=== PATIENT | female | born 1960 | race Caucasian/White ===

== ENCOUNTER → 2017-02-26 | Outpatient (CLI) | payer BC | END | disposition home or self-care (01) | LOC: GMAM 11:01 | PROVIDERS: ATTEND Family Medicine | DX: E04.2 Nontoxic multinodular goiter (principal) ==

== ENCOUNTER 2017-05-15 23:12 | Emergency (ER) | payer BC ==
--- NOTE | 2017-05-16 00:36 | CT ---
EXAM: CT head without contrast. INDICATION: Syncope. TECHNIQUE: Contiguous axial CT images of the brain. Intravenous contrast: Absent. DLP 773 mGy-cm. This exam was performed according to our departmental dose-optimization program, which includes automated exposure control, adjustment of the mA and/or kV according to patient size and/or use of iterative reconstruction technique. COMPARISON: None. FINDINGS: Subcutaneous: Unremarkable. No acute intracranial hemorrhage. No midline shift. No mass effect. Ventricles: No hydrocephalus. Munson-white differentiation preserved. Paranasal sinuses/mastoid air cells: A mucus retention cyst is in the left maxillary sinus Bones/orbits: Visualized portions are unremarkable. IMPRESSION: 1. No CT evidence of acute intracranial hemorrhage. Electronically signed by: Mike Chowdhury MD 05/16/2017 12:36 AM CDT Workstation: [id number]
--- NOTE | 2017-05-16 00:40 | RAD ---
EXAM DESCRIPTION: Chest,2 Views CLINICAL HISTORY: 57 years Female syncope COMPARISON: None. FINDINGS: The cardiomediastinal silhouette appears unremarkable. No consolidating infiltrates or pleural effusions. No pneumothorax. IMPRESSION: No acute abnormality is identified. Electronically signed by: Eliana Valverde 05/16/2017 12:40 AM CDT
[2017-05-16] MEDS ORDERED: SODIUM CHLORIDE 0.9% 1000ML 1,000 ML IVS ONE (01:08)
[2017-05-16] MEDS ORDERED: ASPIRIN TABLET 325 MG TAB PO ONE (01:41)
--- NOTE | 2017-05-16 02:40 | CT ---
EXAM: CT chest angiogram with contrast. INDICATION: Chest pain. TECHNIQUE: Contiguous axial CT images of the chest. Intravenous contrast: Present. Protocol: Pulmonary embolus (PE) protocol angiogram. Reformats: MIPs and MPRs created and utilized. DLP 522 mGy-cm. This exam was performed according to our departmental dose-optimization program, which includes automated exposure control, adjustment of the mA and/or kV according to patient size and/or use of iterative reconstruction technique. Note: LV=left ventricle. RV=right ventricle. COMPARISON: None. FINDINGS: Upper abdomen: Partially imaged. Cholecystectomy Thoracic aorta: Unremarkable. Heart: No right atrial thrombus. RV/LV ratio: Within normal limits. Pulmonary arteries: Pulmonary embolus: No large central pulmonary embolism is detected. Mediastinum: No pathologic sized middle mediastinal lymphadenopathy. Tracheobronchial tree: Unremarkable. Lungs: Lobar consolidation: Negative. Pleural effusion: Negative. Pneumothorax: Negative. Other: Negative. Bones: Unremarkable. IMPRESSION: 1. No CT evidence of acute PE. Electronically signed by: Mike Chowdhury MD 05/16/2017 2:39 AM CDT Workstation: [employer]
[2017-05-16] MEDS ORDERED: HEPARIN SODIUM (PORCINE) 5,000 U/ML VIAL IV ONE (02:48)
[2017-05-16 03:44] VITALS: O2SAT 96
[2017-05-16] MEDS ORDERED: PROMETHAZINE HCL INJ 25 MG in SODIUM CHLORIDE 0.9% 50ML 50 ML IVPB ONE (03:57)
[2017-05-16] MEDS ORDERED: HYDROcodone 5MG/APAP 325MG 1 EA TAB PO ONE (03:57)
[2017-05-16] MEDS ORDERED: PROMETHAZINE HCL INJ 25 MG/ML VIAL ONE (04:04)
[2017-05-16] MEDS ORDERED: SODIUM CHLORIDE 0.9% 50ML 50 ML ONE (04:05)
--- NOTE | 2017-05-16 05:41 | ED.PDOC ---
History of Present Illness - General Chief Complaint: General Stated Complaint: N/V PASSED OUT Time Seen by Provider: 05/15/17 23:15 Source: patient, family Exam Limitations: no limitations - History of Present Illness Initial Comments: the patient is a 57-year-old female presenting after 2 episodes of syncope with the last also having an episode of vomiting. The patient had a mild headache during the day. She had taken hydrocodone for the headache and the headache was already going away. The patient was getting up apparently to let the dog out from a seated position and got a few steps andpassed out briefly. She got up to go to the sink and then passed out again and vomited when she awoke. She felt weak at the time. She had some palpitations. No chest pain. No loss of continence. The patient had been off of methadone for2 and half weeks at that time. No previous significant syncopal episodes. She had not missed any of her medications otherwise. No headache at the time. No focal neurological deficits at the time. Timing/Duration: momentarily Severity: moderate Improving Factors: nothing Worsening Factors: nothing Associated Symptoms: malaise, nausea/vomiting, syncope Allergies/Adverse Reactions: Allergies Levofloxacin [From Levaquin] Adverse Reaction (Verified 05/15/17 23:35) Review of Systems - Review of Systems Constitutional: States: malaise, weakness - generalized EENTM: States: no symptoms reported Respiratory: States: no symptoms reported Cardiology: States: palpitations - briefly Gastrointestinal/Abdominal: States: vomiting Genitourinary: States: no symptoms reported Musculoskeletal: States: no symptoms reported - none new Skin: States: no symptoms reported Neurological: States: anxiety, other - yncope Endocrine: States: no symptoms reported All other Systems: No Change from Baseline Past Medical History (General) - Patient Medical History Hx Thyroid Disease: Yes Hx Diabetes: Yes Surgical History: cholecystectomy - Vaccination History Hx Tetanus, Diphtheria Vaccination: Yes Hx Influenza Vaccination: Yes Hx Pneumococcal Vaccination: No Immunizations Up to Date: Yes - Social History Hx Alcohol Use: No Hx Substance Use: No - Female History Patient is a Female of Child Bearing Age (10 -59 yrs old): No Family Medical History - Family History Mother Family History: Unknown Physical Exam - Physical Exam General Appearance: Alert, Comfortable, No apparent distress, Other - the patient's color is good. She was able to ambulate without difficulty. Speech is fluent. No focal neurological deficits. Well nourished. Well groomed. Well hydrated. Eye Exam: bilateral normal Ears, Nose, Throat: hearing grossly normal, normal ENT inspection, normal pharynx Neck: non-tender, full range of motion, supple Respiratory: chest non-tender, lungs clear, normal breath sounds, no respiratory distress, no accessory muscle use Cardiovascular/Chest: normal peripheral pulses, no edema, tachycardia - mildly tachycardic but regular rhythm Peripheral Pulses: radial,right: 2+, radial,left: 2+, dorsalis pedis,right: 2+, dorsalis pedis,left: 2+, posterior tibialis,right: 2+, posterior tibialis,left: 2+ Gastrointestinal/Abdominal: normal bowel sounds, non tender, soft Rectal Exam: deferred Back Exam: normal inspection, no CVA tenderness, no vertebral tenderness Extremity: normal range of motion, non-tender, normal inspection, no pedal edema , normal capillary refill 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 The patient is mildly tilt positive by pulse. She has received a liter of IV fluids. Source of syncope at this time is not for certain. Telemetry monitoring here has shown only sinus tachycardia no evidence of other non-perfusing arrhythmia. If any episodes recur then she needs to discuss with her doctor obtaining a Holter monitor and carotid Dopplers. She did have an elevated d-dimer but a negative CT angiogram of the chest. It is possible that she may have had a pulmonary embolus that had moved on to the periphery of her pulmonary circulation and thus was missed by the CT scan. I would recommend that she be set up as an outpatient for bilateral lower extremity Dopplers for completion of the workup for safety sake with her primary care doctor. For now she should take an aspirin daily. It is possible that gastritis may have caused a vasovagal response and the syncope. Her diabetes medications are fairly notorious for intestinal upset. She should follow-up with her primary care doctor before the weekend. she did have a slight elevation of her troponin upon initial evaluation but this disappeared with a repeat check. I believe this was an error. The patient has done well since her arrival here. She wishes to go home at this time. ER warnings were given for any worsening. - Results/Orders Results/Orders: Laboratory Tests 05/15/17 05/15/17 05/15/17 23:35 23:55 23:55 WBC 8.1 RBC 5.14 Hgb 14.8 Hct 44.2 MCV 85.9 MCH 28.7 MCHC 33.4 RDW 12.9 Plt Count 168 MPV 9.5 Absolute Neuts (auto) 6.90 H Absolute Lymphs (auto) 0.60 L Absolute Monos (auto) 0.50 Absolute Eos (auto) 0.10 Absolute Basos (auto) 0.00 Neutrophils % 84.4 H Lymphocytes % 7.7 L Monocytes % 6.2 Eosinophils % 1.4 Basophils % 0.3 PT INR PTT (SP) D-Dimer, Quantitative Sodium 136 Potassium 4.0 Chloride 102 Carbon Dioxide 25 Anion Gap 13.0 BUN 26 H Creatinine 0.91 BUN/Creatinine Ratio 28.6 H POC Glucose Random Glucose 270 H Serum Osmolality 286.2 Calcium 9.0 Magnesium 2.1 Total Bilirubin 1.4 H AST 73 H ALT 60 Alkaline Phosphatase 54 Creatine Kinase 58 CK-MB (CK-2) 0.9 CK-MB (CK-2) % Not Reportable Troponin I 0.60 H* B-Natriuretic Peptide 5.3 Serum Total Protein 6.7 Albumin 4.0 Globulin 2.7 Albumin/Globulin Ratio 1.5 TSH 1.43 Urine Color Urine Appearance Urine pH Ur Specific [place] Urine Protein Urine Glucose (UA) Urine Ketones Urine Blood Urine Nitrite Urine Bilirubin Urine Urobilinogen Ur Leukocyte Esterase Urine RBC Urine WBC Ur Epithelial Cells Urine Bacteria Urine HCG, Qual Negative 05/15/17 05/15/17 05/15/17 23:55 23:55 23:56 WBC RBC Hgb Hct MCV MCH MCHC RDW Plt Count MPV Absolute Neuts (auto) Absolute Lymphs (auto) Absolute Monos (auto) Absolute Eos (auto) Absolute Basos (auto) Neutrophils % Lymphocytes % Monocytes % Eosinophils % Basophils % PT 10.5 INR 0.930 PTT (SP) 22.0 L D-Dimer, Quantitative 864 H* Sodium Potassium Chloride Carbon Dioxide Anion Gap BUN Creatinine BUN/Creatinine Ratio POC Glucose 230 H Random Glucose Serum Osmolality Calcium Magnesium Total Bilirubin AST ALT Alkaline Phosphatase Creatine Kinase CK-MB (CK-2) CK-MB (CK-2) % Troponin I B-Natriuretic Peptide Serum Total Protein Albumin Globulin Albumin/Globulin Ratio TSH Urine Color Yellow Urine Appearance Clear Urine pH 5.0 Ur Specific [place] 1.020 Urine Protein Negative Urine Glucose (UA) 500 H Urine Ketones 15 H Urine Blood Negative Urine Nitrite Negative Urine Bilirubin Negative Urine Urobilinogen 0.2 Ur Leukocyte Esterase Negative Urine RBC 0 Urine WBC 1-3 Ur Epithelial Cells 0-1 Urine Bacteria 2+ H Urine HCG, Qual 05/16/17 03:00 WBC RBC Hgb Hct MCV MCH MCHC RDW Plt Count MPV Absolute Neuts (auto) Absolute Lymphs (auto) Absolute Monos (auto) Absolute Eos (auto) Absolute Basos (auto) Neutrophils % Lymphocytes % Monocytes % Eosinophils % Basophils % PT INR PTT (SP) D-Dimer, Quantitative Sodium Potassium Chloride Carbon Dioxide Anion Gap BUN Creatinine BUN/Creatinine Ratio POC Glucose Random Glucose Serum Osmolality Calcium Magnesium Total Bilirubin AST ALT Alkaline Phosphatase Creatine Kinase 60 CK-MB (CK-2) 0.9 CK-MB (CK-2) % Not Reportable Troponin I < 0.02 B-Natriuretic Peptide Serum Total Protein Albumin Globulin Albumin/Globulin Ratio TSH Urine Color Urine Appearance Urine pH Ur Specific [place] Urine Protein Urine Glucose (UA) Urine Ketones Urine Blood Urine Nitrite Urine Bilirubin Urine Urobilinogen Ur Leukocyte Esterase Urine RBC Urine WBC Ur Epithelial Cells Urine Bacteria Urine HCG, Qual head CT shows no acute changes. cT angiogram of the chest with PE protocol shows no evidence of a pulmonary embolus Initial and repeat EKG shows mild sinus tachycardia Normal QT interval. No acute ST segment changes concerning for ischemia on either chest x-ray appears benign - EKG/XRAY/CT CT Ordered: Yes CT Interpretation Call Back: Yes Departure - Departure Clinical Impression: Syncope Qualifiers: Syncope type: unspecified Qualified Code(s): R55 - Syncope and collapse Disposition: Discharge to Home or Self Care Condition: Fair Departure Forms: ED Discharge - Pt. Copy, Patient Portal Self Enrollment Instructions: DI for Syncope in Adults (Fainting) Diet: diabetic diet Activity: increase activity as tolerated Referrals: Jose Ely MD [Primary Care Provider] - 1-2 Days Additional Instructions: the patient is a 57-year-old female presenting after 2 syncopal episodes in rapid succession. The patient is mildly tilt positive by pulse. She has received a liter of IV fluids. Source of syncope at this time is not for certain. Telemetry monitoring here has shown only sinus tachycardia no evidence of other non-perfusing arrhythmia. If any episodes recur then she needs to discuss with her doctor obtaining a Holter monitor and carotid Dopplers. She did have an elevated d-dimer but a negative CT angiogram of the chest. It is possible that she may have had a pulmonary embolus that had moved on to the periphery of her pulmonary circulation and thus was missed by the CT scan. I would recommend that she be set up as an outpatient for bilateral lower extremity Dopplers for completion of the workup for safety sake with her primary care doctor. For now she should take an aspirin daily. It is possible that gastritis may have caused a vasovagal response and the syncope. Her diabetes medications are fairly notorious for intestinal upset. She should follow-up with her primary care doctor before the weekend. she did have a slight elevation of her troponin upon initial evaluation but this disappeared with a repeat check. I believe this was an error. The patient has done well since her arrival here. She wishes to go home at this time. ER warnings were given for any worsening.
[2017-05-16 06:13] VITALS: BP 106/63; TEMP 97.4
== END 2017-05-16 06:13 | disposition home or self-care (01) ==
LOC: ER 23:12
DX: R55 Syncope and collapse (principal); R00.0 Tachycardia, unspecified; R11.2 Nausea with vomiting, unspecified; Z88.3 Allergy status to other anti-infective agents; E11.9 Type 2 diabetes mellitus without complications; E07.9 Disorder of thyroid, unspecified
CPT/HCPCS: 36415; 36416; 70450; 71020; 71275; 80053; 81001; 81025; 82550; 82553; 82948; 83735; 83880; 84443; 84484; 85025; 85379; 85610; 85730; 93005; A4216; J1644; J2550; J7030

== ENCOUNTER → 2017-05-17 | Outpatient (CLI) | payer BC, SELFPAY ==
--- NOTE | 2017-05-19 14:07 | US ---
PROCEDURE: Venous,Lower Extremity LT CLINICAL HISTORY and INDICATION: Left leg pain. Evaluation for deep vein thrombosis COMPARISON: None. TECHNIQUE: Jones scale imaging with duplex interrogation of the left lower extremity venous system was performed and multiple static images were obtained. FINDINGS: Utilizing compression and augmentation, there is no deep venous thrombus in the common femoral, superficial femoral or popliteal veins. The posterior tibial and deep peroneal veins are patent and compressible. . The greater saphenous vein at the saphenofemoral junction is patent and compressible. There is no visualization of any subcutaneous fluid collections. There is no visualization of any fluid collections in the left popliteal fossa. There is no evidence of reactive or pathological lymphadenopathy in the evaluated left lower extremity. IMPRESSION: No deep venous thrombosis of the left lower extremity. Location of Interpretation: [id number] Electronically signed by: Rick Cook MD 05/19/2017 2:06 PM CDT Workstation: [id number]
--- NOTE | 2017-05-19 14:08 | US ---
PROCEDURE: Venous,Lower Extremity RT CLINICAL HISTORY and INDICATION: Right leg pain. Evaluation for deep vein thrombosis COMPARISON: None. TECHNIQUE: Jones scale imaging with duplex interrogation of the right lower extremity venous system was performed and multiple static images were obtained. FINDINGS: Utilizing compression and augmentation, there is no deep venous thrombus in the common femoral, superficial femoral or popliteal veins. The posterior tibial and deep peroneal veins are patent and compressible. . The greater saphenous vein at the saphenofemoral junction is patent and compressible. There is no visualization of any subcutaneous fluid collections. There is no visualization of any fluid collections in the right popliteal fossa. There is no evidence of reactive or pathological lymphadenopathy in the evaluated right lower extremity. IMPRESSION: No deep venous thrombosis of the right lower extremity. Location of Interpretation: [id number] Electronically signed by: Rick Cook MD 05/19/2017 2:08 PM CDT Workstation: [id number]
--- NOTE | 2017-05-20 09:01 | US ---
EXAM DESCRIPTION: Carotid Duplex CLINICAL HISTORY: SYNCOPE COMPARISON: None Available. TECHNIQUE: Carotid Doppler ultrasound FINDINGS: Carotid Doppler ultrasound shows scattered calcified plaque formation. There is no significant soft plaque. No plaque ulceration is observed. All duplex waveforms and flow velocities are within normal limits on both sides. Both vertebrals are patent with antegrade flow. IMPRESSION: Minor calcified plaque formation, no hemodynamically significant stenosis Electronically signed by: Trino Rosado MD 05/20/2017 9:00 AM CDT
== END | disposition home or self-care (01) ==
LOC: US 11:03
PROVIDERS: ATTEND Family Medicine
DX: R55 Syncope and collapse (principal); I80.8 Phlebitis and thrombophlebitis of other sites

== ENCOUNTER → 2017-05-20 | Outpatient (CLI) | payer BC | LOC: GMAM 13:02 | PROVIDERS: ATTEND Family Medicine | DX: R55 Syncope and collapse (principal) ==

== ENCOUNTER → 2017-06-14 | Outpatient (CLI) | payer BC | LOC: GMAM 10:40 | PROVIDERS: ATTEND Family Medicine | DX: E04.2 Nontoxic multinodular goiter (principal) ==

== ENCOUNTER → 2017-08-29 | Outpatient (CLI) | payer BC | END | disposition home or self-care (01) | LOC: GMA 11:07 | PROVIDERS: ATTEND Nurse Practitioner Acute Care | DX: Z01.419 Encounter for gynecological examination (general) (routine) without abnormal findings (principal) ==

== ENCOUNTER → 2018-02-05 | Outpatient (CLI) | payer BC | LOC: GMAM 10:41 | PROVIDERS: ATTEND Family Medicine | DX: E04.2 Nontoxic multinodular goiter (principal); I10 Essential (primary) hypertension; E11.9 Type 2 diabetes mellitus without complications; R94.5 Abnormal results of liver function studies ==

== ENCOUNTER → 2018-02-07 | Outpatient (CLI) | payer BC, OTHER ==
--- NOTE | 2018-02-07 23:38 | US ---
Procedure: US LIVER Exam Date: 02/07/2018 Ordering Provider: ARIELLA GRANDA Clinical Indication: ELEVATED LFT'S Comparison: None Technique: Real-time ultrasonography was obtained over the right upper quadrant and c s s representative images were recorded. Findings: The liver is echogenic consistent with fatty infiltration. Liver is enlarged measuring up to 18.6 cm. No solid or cystic hepatic masses. The extrahepatic common duct measures 5.4 mm. No intrahepatic or extrahepatic biliary dilation. The gallbladder has been removed. Visualized pancreas is within normal limits. No hydronephrosis in the right kidney. No ascites in the abdomen. Impression: 1. Hepatomegaly and hepatic steatosis. 2. Prior cholecystectomy. Electronically signed by: Jonathan El MD 02/07/2018 11:37 PM [employer]
== END ==
LOC: US 08:27
PROVIDERS: ATTEND Family Medicine
DX: R94.5 Abnormal results of liver function studies (principal); R16.0 Hepatomegaly, not elsewhere classified; K76.0 Fatty (change of) liver, not elsewhere classified; E04.2 Nontoxic multinodular goiter; E11.9 Type 2 diabetes mellitus without complications; E78.2 Mixed hyperlipidemia

== ENCOUNTER → 2018-12-08 | Outpatient (CLI) | payer BC, OTHER ==
--- NOTE | 2018-12-08 12:44 | US ---
EXAM DESCRIPTION: Abdomen,Limited CLINICAL HISTORY: RUQ abd mass COMPARISON: Previous study February 07, 2018 liver sonogram TECHNIQUE: Right upper quadrant ultrasound FINDINGS: Pancreas: Visualized portions of the pancreas are unremarkable. Bowel gas obscures some areas. Aorta/inferior vena cava: No aortic aneurysm. Normal inferior vena cava. Liver: The liver is homogeneous in texture with increased echogenicity consistent with diffuse hepatic steatosis. This same appearance was seen on the previous study. The measured liver length of 15.5 cm is normal on the present study. No focal liver lesion or intrahepatic bile duct dilatation. No liver surface irregularity. Normal appearance of the portal vein and hepatic veins. Gallbladder: Surgically absent. Common bile duct: Normal caliber measuring 4.1 mm. Right kidney: Renal length is 11.5 cm. Normal cortical echogenicity. Cortical thickness is normal. No hydronephrosis is seen. No renal mass or shadowing calculus. Palpable area in the region of the lower right rib cage shows thickened subcutaneous fatty tissue but no measurable lipoma. Similar thickening of the subcutaneous fatty tissue is seen overlying the left lower rib cage which was imaged for comparison. No worrisome change since previous study. IMPRESSION: Diffuse hepatic steatosis. In the area of palpable concern, prominent subcutaneous fatty tissue is seen. Electronically signed by: Darren He MD 12/08/2018 12:43 PM [employer]
== END ==
LOC: US 11:46
PROVIDERS: ATTEND Family Medicine
DX: R19.01 Right upper quadrant abdominal swelling, mass and lump (principal); K76.0 Fatty (change of) liver, not elsewhere classified

== ENCOUNTER → 2018-12-12 | Outpatient (CLI) | payer OTHER | LOC: GMAM 11:11 | PROVIDERS: ATTEND Family Medicine | DX: R55 Syncope and collapse (principal) ==

== ENCOUNTER → 2019-09-09 | Outpatient (CLI) | payer BC | LOC: GMAM 10:36 | PROVIDERS: ATTEND Family Medicine | DX: E04.2 Nontoxic multinodular goiter (principal); I10 Essential (primary) hypertension; E11.9 Type 2 diabetes mellitus without complications ==

== ENCOUNTER → 2019-12-21 | Outpatient (CLI) | payer OTHER ==
--- NOTE | 2019-12-21 14:01 | CT ---
EXAM DESCRIPTION: Head CT without contrast CLINICAL HISTORY: ESOTROPIA COMPARISON: Previous CT head May 16, 2017 TECHNIQUE: Noncontrast head CT was performed with routine protocol. FINDINGS: Normal mariee-white matter differentiation. Ventricles and sulci are normal for age. Low density areas in the white matter consistent with chronic microvascular ischemic disease. The pattern is similar to previous study. No high density hemorrhage, focal edema or shift of the midline. No sulcal effacement. Normal orbital contents. Basilar cisterns appear clear. Intact calvarium with no fracture or lytic lesion. Normal aeration of tympanic cavities and mastoid air cells. No fluid levels in the paranasal sinuses. Skull base appears intact. Symmetrical internal auditory canals. IMPRESSION: No acute intracranial pathologic process. This exam was performed according to our departmental dose-optimization program, which includes automated exposure control, adjustment of the mA and/or kV according to patient size and/or use of iterative reconstruction technique. Total DLP equals 752.48 mGycm. Electronically signed by: Darren He MD 12/21/2019 2:00 PM [facility]
== END ==
LOC: CT 13:19
PROVIDERS: ATTEND Optometrist
DX: H49.21 Sixth [abducent] nerve palsy, right eye (principal)

== ENCOUNTER → 2019-12-22 | Outpatient (CLI) | payer BC | LOC: GMAM 10:57 | PROVIDERS: ATTEND Family Medicine | DX: H50.00 Unspecified esotropia (principal) ==

== ENCOUNTER → 2019-12-22 | Outpatient (CLI) | payer OTHER ==
--- NOTE | 2019-12-22 11:46 | CT ---
EXAM DESCRIPTION: Sinuses w/wo Contrast: Computed Tomography. CLINICAL HISTORY: Unspecified esotropia COMPARISON: CT scan of the head without contrast 21 December. TECHNIQUE: Spiral -axial scans through the head and orbits at 2.5 x 2.5 mm intervals, with nonionic IV contrast. Axial 2.5 x 2.5 mm bone algorithm reconstructions. Coronal and sagittal 2.0 mm reconstructions. No adverse reactions. Total Exam DLP: 931.72 mGy-cm. This exam was performed according to our departmental CT dose-optimization program which includes automated exposure control, adjustment of the mA and/or kV according to patient size and/or use of iterative reconstruction technique; to reduce radiation dose to as low as reasonably achievable (ALARA). FINDINGS: Optic globes, extraocular muscles, and the optic nerves bilaterally symmetric with no enlargement and no abnormal contrast enhancement. No abnormal contrast enhancement or density in the intraorbital fat. No abnormal anterior or calcifications. The pituitary gland is seen only in the base of the sella which is mostly occupied by CSF. No abnormal enhancement in the sella or suprasellar compartments. Normal enhancement of the optic tracts and optic chiasm with no mass effect. Normal contrast enhancement of the intra-axial brain. Normal enhancement of the ventricle lining, parenchyma surrounding the CSF spaces, and parenchyma abutting the subdural spaces. No unusual enhancement in the [place]. IMPRESSION: 1. Normal contrast enhancement of the bilateral intraorbital structures.. Normal contrast enhancement of the optic chiasm and distal optic tracts at the optic chiasm. No mass effect. 2. Normal contrast enhancement of the intra-axial and extra-axial brain. 3. Pituitary gland in the base of the sella, which is occupied mostly by CSF.. Electronically signed by: Rupesh Rosales MD 12/22/2019 11:45 AM [facility]
== END ==
LOC: CT 10:03
PROVIDERS: ATTEND Family Medicine
DX: H50.00 Unspecified esotropia (principal)